=== PATIENT | female | born 1995 ===

== ENCOUNTER 2017-02-25 16:21 | Emergency (ER) | payer SELFPAY ==
[2017-02-25 16:56] LABS: URINE BACTERIA OCC (<OCC); WBC URINE 56 /hpf (0-5)
[2017-02-25 16:57] LABS: PH,URINE 8.5 (5.0-8.0); URINE BILIRUBIN NEGATIVE (NEGATIVE); URINE BLOOD NEGATIVE (NEGATIVE); URINE COLOR YELLOW (YELLOW); URINE GLUCOSE (UA) NEGATIVE (Normal); URINE KETONE NEGATIVE (NEGATIVE)
[2017-02-25 16:58] LABS: URINE LEUKOCYTE ESTERASE MODERATE Leu/uL (Negative); URINE PROTEIN TRACE mg/dL (NEGATIVE); URINE UROBILINOGEN 0.2 mg/dL (0.2-1.0)
[2017-02-25] MEDS ORDERED: Lactated Ringer's 1,000 ML IV ONE (17:15)
--- NOTE | 2017-02-25 17:38 | OBHP ---
Datetime: 02/25/2017 17:33 IP Adm Impression: , intrauterine Admit Comment, IP Provider: 21 y/o @ 28.1 wks GA, no prental care x 1 month, reports recently c na from c/o right sided back pain on and off, non improved. pt denie any dysuira, urgency but re pors frequency. pt dnei esany blood in urine, vb, ctx, lof and reprots normal movmeents. pt den ies any fevers, chills, nasue, vomiting, CP, SOB, constipaton. 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 denies ever having a pap. LMP regular PMH: denies PSH: denies FH:X non contributory SHX: ngatei etho/tobacco/drugs MEDS :PNV Allergy: PCN rash A/P @ 28.1 wks GA with urinary frequency -UA/Urine Cx -IVH -Rx Keflex: adivsed of up to 30% cross reactivity of PNC allergy: precautiosn givne: if sob, cp, r corry, not feelign well to go nearset est -hydration encourage -tyenol prn pain -advsied can go to clinic to establity care, information provided - labor precatuiosn given Pelvic Type - PN: Adequate Extremities - PN: Normal Abdomen - PN: Normal Back - PN: Normal Breast - PN: Not Done Lungs - PN: Normal Heart - PN: Normal Thyroid - PN: Normal Neurologic - PN: Normal HEENT - PN: Normal General - PN: Normal FHR - Baseline A Provider: 135 Membranes, Provider: Intact Contraction Comments Provider: irritalibty Gestation - Est Wks by US: 28.1 EGA AdmitDate IP: 28.1 Vital Signs Provider: Reviewed; Within Normal Limits IP Chief Complaint: Other NICHD Variability Prov Fetus A: Moderate 6-25bpm NICHD Accel Fetus A IP Provider: 15X15 FHR Category Provider Fetus A: Category I NICHD Decel Fetus A IP Provider: None Dilatation, Provider: 0 Effacement, Provider: 0 Station, Provider: -3 Genitourinary Exam: Normal DTRs - PN: Normal
[2017-02-27 14:10] VITALS: BP 107/61; PULSE 109
== END 2017-02-25 17:34 | disposition home or self-care (01) ==
LOC: C.EROB 16:21
DX: O26.893 Other specified pregnancy related conditions, third trimester (principal); R35.0 Frequency of micturition; Z3A.28 28 weeks gestation of pregnancy
CPT/HCPCS: 81001; 99283; J7120

== ENCOUNTER 2017-05-24 20:12 | Inpatient (IN) | payer MEDICAID ==
[2017-05-24] MEDS: Lactated Ringer's 1,000 ML IV SCH (21:05)
--- NOTE | 2017-05-24 21:27 | OBADHP ---
Datetime: 05/24/2017 20:33 Admit Comment, IP Provider: Patient is a 21 year old at 40w4d KAREN 05/20/17 by LMP consistent wi th 29w6d US presents to L+D for scheduled induction of labor for postdates. Patient is doing well, of fers no complaints at this time. Endorses +FM, states feeling abdominal pressure intermittently, gaye es LOF or VB. Issues: Chlamydia positive - treated on 03/23/17, NIGHAT negative Abnormal 1 hr GCT, 3 hr GTT WNL Late to care OB Hx: 1. 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 Hx: LMP 08/13/16 [facility] - 11 x regular x 4 days Denies hx of ovarian cysts, fibroids Hx of Chlamydia with this - treated Denies hx of abnormal pap smears Allergies: PCN Medications: PNV Medical Hx: Denies Surgical Hx: Denies Social Hx: Denies alcohol, tobacco, drug use; lives with brother, is in [place] Family Hx: Father - HTN, DM ; Mother - healthy ; Grandmother - DM PE: See above A/P: 21 year old at 40w4d presents for IOL 2/2 postdates -Stable, afebrile -Admit to Unit -CEFM and TOCO -Admission labs - CBC, CMP, T+S, UA -LR @ 125 cc/hr -GBS negative - no antibiotics needed at this time -Anesthesia on consult -Cervidil for cervical rippening agent -Plan d/w attending Vicki Estrella DO PGY-1 OB attending patient at 40.4 wga with c/o abdominal pain patient examined.agree with resident exam, assessment and plan A/P Post dates; uterine contraction s plan-admit -se eorders Pelvic Type - PN: Adequate Extremities - PN: Normal Abdomen - PN: Normal Back - PN: Normal General - PN: Normal Weight - Estimated: 3200 Presentation-Admit: Vertex FHR - Baseline A Provider: 140 Contraction Comments Provider: q4-5 min Comments, ACOG Physical Exam: VSS Gen: AAOx3 CV: RRR Lungs: CTA B/L Abd: Soft, gravid Ext: No clubbing, cyanosis, edema SVE: closed/thick/high Gestation - Est Wks by US: 40.4 IP Hx Assessment: The History has been Reviewed and is Current Vital Signs Provider: Reviewed IP Chief Complaint: Uterine contractions NICHD Variability Prov Fetus A: Moderate 6-25bpm NICHD Accel Fetus A IP Provider: 15X15 FHR Category Provider Fetus A: Category I NICHD Decel Fetus A IP Provider: None Dilatation, Provider: closed Effacement, Provider: thick Station, Provider: high Genitourinary Exam: Normal DTRs - PN: Normal EGA AdmitDate IP: 40.4 IP Adm Impression: Term, intrauterine IP Admit Plan: Admit to unit; Initiate labor induction protocol Datetime: 02/25/2017 17:33 Breast - PN: Not Done Lungs - PN: Normal Heart - PN: Normal Thyroid - PN: Normal Neurologic - PN: Normal HEENT - PN: Normal Membranes, Provider: Intact
[2017-05-24 21:39] LABS: BASO % 0.2 % (0.0-2.0); EOS % 0.3 % (0.0-4.0); HEMATOCRIT 41.7 % (34.0-47.0); LYMPH # 2.2 K/uL (1.0-4.3); LYMPH % 21.6 % (20.0-40.0); MEAN CELL VOLUME 88.9 fL (81.0-99.0); MEAN CORPUSCULAR HEMOGLOBIN 29.5 pg (27.0-31.0); MEAN CORPUSCULAR HGB CONC 33.2 g/dL (33.0-37.0); MEAN PLATELET VOLUME 7.2 fL (7.2-11.7); MONO # 0.7 K/uL (0.0-0.8); MONO % 7.2 % (0.0-10.0); RED CELL DISTRIBUTION WIDTH 14.5 % (11.5-14.5); WHITE BLOOD COUNT 10.1 K/uL (4.8-10.8)
[2017-05-24 21:58] LABS: ALB/GLOB RATIO 0.9 (1.0-2.1); ALKALINE PHOSPHATASE 269 U/L (38-126); ALT/SGPT 33 U/L (9-52); AST/SGOT 26 U/L (14-36); BILIRUBIN,TOTAL 0.4 mg/dL (0.2-1.3); BLOOD UREA NITROGEN 10 mg/dL (7-17); CALCIUM 8.5 mg/dl (8.6-10.4); CARBON DIOXIDE 20 mmol/L (22-30); CHLORIDE 104 mmol/L (98-107); GFR AFRICAN-AMERICAN > 60; GLUCOSE,RANDOM 81 mg/dL (65-105); POTASSIUM 3.7 mmol/L (3.6-5.2); SODIUM 132 mmol/L (132-148); TOTAL PROTEIN 7.2 g/dL (6.3-8.3)
--- NOTE | 2017-05-24 22:02 | OBPN ---
Datetime: 05/24/2017 21:53 IP Progress Impression: Reassuring heart rate IP Procedures: Sterile Vag Exam IP Progress Plan: Continue present management Contraction Comments Provider: occ IP Progress Note Comment: S-patient denies any complaints. FHT cat1 [place] occ ctx sve closed/thick and high A/P Patient at 40.4 wga here for idnuction for postdates -cervidil placed -continue to monitor closely Vital Signs Provider: Reviewed FHR Category Provider Fetus A: Category I Dilatation, Provider: 0 Effacement, Provider: 50 Station, Provider: -3 Datetime: 05/24/2017 20:33 FHR - Baseline A Provider: 140 Gestation - Est Wks by US: 40.4 Weight - Estimated: 3200 Presentation-Admit: Vertex NICHD Accel Fetus A IP Provider: 15X15 NICHD Variability Prov Fetus A: Moderate 6-25bpm NICHD Decel Fetus A IP Provider: None Datetime: 02/25/2017 17:33 Membranes, Provider: Intact
[2017-05-24 22:10] LABS: RBC URINE 12 /hpf (0-3); URINE BACTERIA FEW (<OCC); URINE BILIRUBIN NEGATIVE (NEGATIVE); URINE BLOOD 1+ (NEGATIVE); URINE COLOR Yellow (YELLOW); URINE GLUCOSE (UA) NORMAL (Normal); URINE KETONE NEGATIVE (NEGATIVE); URINE LEUKOCYTE ESTERASE 3+ Leu/uL (Negative); URINE PROTEIN 1+ mg/dL (NEGATIVE); URINE UROBILINOGEN NORMAL mg/dL (0.2-1.0); WBC URINE 86 /hpf (0-5)
[2017-05-24] MEDS ORDERED: Nalbuphine 20 mg/ml Inj (1 ml) IVP PRN (23:45)
[2017-05-25] MEDS ORDERED: Nalbuphine 20 mg/ml Inj (1 ml) ONE ×2 (07:52→20:00)
--- NOTE | 2017-05-25 10:08 | OBPN ---
Datetime: 05/25/2017 10:04 IP Procedures: Sterile Vag Exam Contraction Comments Provider: q1-5 FHR - Baseline A Provider: 130 IP Progress Note Comment: pt was seen at bed side ve /-3 cervidil removed. plan give a break reg deit walking will put a cervidil plan was idscussed with pateimnt and afrees Vital Signs Provider: Reviewed; Within Normal Limits NICHD Accel Fetus A IP Provider: 15X15 FHR Category Provider Fetus A: Category I NICHD Variability Prov Fetus A: Moderate 6-25bpm Dilatation, Provider: 1 Effacement, Provider: 50 Station, Provider: -3
[2017-05-25] MEDS: Lactated Ringer's 1,000 ML IV SCH (15:00)
--- NOTE | 2017-05-25 19:09 | OBPN ---
Datetime: 05/25/2017 16:05 IP Progress Impression: Normal progression of labor IP Procedures: Sterile Vag Exam IP Progress Plan: Cervical Ripening FHR - Baseline A Provider: 130 IP Progress Note Comment: pt was examined at bed side ve /-3 cervidil placed. pain meds anticipate Vital Signs Provider: Reviewed; Within Normal Limits NICHD Accel Fetus A IP Provider: 15X15 FHR Category Provider Fetus A: Category I NICHD Variability Prov Fetus A: Moderate 6-25bpm Dilatation, Provider: 1 Effacement, Provider: 50 Station, Provider: -3
[2017-05-25] MEDS: Nalbuphine 20 mg/ml Inj (1 ml) IVP PRN (20:06)
[2017-05-26] MEDS ORDERED: Nalbuphine 20 mg/ml Inj (1 ml) ONE (02:13)
[2017-05-26] MEDS: Nalbuphine 20 mg/ml Inj (1 ml) IVP PRN (02:16)
[2017-05-26] MEDS ORDERED: Oxytocin 30 UNIT 30 UNITS/500 ML BAG IV PRN (04:30)
[2017-05-26] MEDS ORDERED: Oxytocin 30 UNIT 30 UNITS/500 ML BAG IV ONE (05:04)
[2017-05-26] MEDS: Lactated Ringer's 1,000 ML IV SCH (05:05)
--- NOTE | 2017-05-26 08:10 | OBPN ---
Datetime: 05/26/2017 08:01 IP Progress Impression: Normal progression of labor IP Procedures: Sterile Vag Exam IP Progress Plan: Continue present management Membranes, Provider: Ruptured Contraction Comments Provider: 2-3 minutes FHR - Baseline A Provider: 150 Gestation - Est Wks by US: 40w 6d Presentation-Admit: Vertex IP Progress Note Comment: Patient received in LDR#4, c/o pain of contractions - desires epidural Turkish-speaking predominantly; Clover Tidwell serves as finance business partner Cervical exam- as above. Assessment: 21 y.o. P0, 40w 6d, IOL with appropriate response S/P cervidil x 2. Entering acive pha se of labor. GBS(-). Category 1. Clinically stable. Plan: 1) Epidural 2) continue pitocin 3) Anticipate vaginal delivery NICHD Accel Fetus A IP Provider: 15X15 FHR Category Provider Fetus A: Category I NICHD Variability Prov Fetus A: Moderate 6-25bpm Dilatation, Provider: 4 Effacement, Provider: 70 Station, Provider: -3 NICHD Decel Fetus A IP Provider: None
[2017-05-26] MEDS ORDERED: Bupivacaine 0.125%/FentaNYL 200 ML EPI ONE (08:41)
[2017-05-26] MEDS ORDERED: Lidocaine 2% MPF (5 ml) Inj ONE (13:10)
[2017-05-26] MEDS ORDERED: Bupivacaine HCl 0.25% PF (10 ml) Inj ONE ×2 (13:10→16:27)
--- NOTE | 2017-05-26 15:52 | OBPN ---
Datetime: 05/26/2017 15:46 IP Progress Impression: Normal progression of labor IP Procedures: Intrauterine Pressure Catheter IP Progress Plan: Continue present management; Augmentation; Anticipate Vaginal Delivery Membranes, Provider: Ruptured Contraction Comments Provider: 2-3 FHR - Baseline A Provider: 150 Gestation - Est Wks by US: 40w 6d Presentation-Admit: Vertex IP Progress Note Comment: Patient received in LDR#4: S/P AROM ar 1220 hours. S/P epidrual - feels no pain; (+) right groin pressure Cervical exam - as above. IUPC inserted without difficulty. Pitocin at 12 mUnits/min Assessment: 21 y.o. P0, 40w 6d, IOL, in active labor. Category 1 tracing. Clinically stable. Plan: 1) Continue present management 2) Anticipate vaginal delivery Vital Signs Provider: Reviewed; Within Normal Limits NICHD Accel Fetus A IP Provider: 15X15 FHR Category Provider Fetus A: Category I NICHD Variability Prov Fetus A: Moderate 6-25bpm Dilatation, Provider: 6 Effacement, Provider: 90 Station, Provider: -1 NICHD Decel Fetus A IP Provider: None
--- NOTE | 2017-05-26 19:00 | OBPN ---
Datetime: 05/26/2017 18:50 IP Progress Impression Other: Protracted active phase of labor IP Procedures: Sterile Vag Exam IP Progress Plan: Continue present management Membranes, Provider: Ruptured Contraction Comments Provider: every 1 minute FHR - Baseline A Provider: 155 Gestation - Est Wks by US: 40w 6d Presentation-Admit: Vertex IP Progress Note Comment: Patient reports right leg pressure Cervical exam: as above Assessment: 21 y.o. P0, 40w 6d, protracted active phase of labor, on pitocin. D/W possibile Felix martha delivery. Patient wants to thtink about it. Category 1 tracing. Clinically stable. Plan: 1) Re-examine in 1 hour Vital Signs Provider: Reviewed; Within Normal Limits NICHD Accel Fetus A IP Provider: 15X15 FHR Category Provider Fetus A: Category I NICHD Variability Prov Fetus A: Moderate 6-25bpm Dilatation, Provider: 6-7 Effacement, Provider: 90 Station, Provider: 1 NICHD Decel Fetus A IP Provider: None
[2017-05-26] MEDS ORDERED: Sodium Citrate/Citric Acid 15 ml Sol PO ONE (20:07)
[2017-05-26] MEDS ORDERED: Clindamycin 600mg/50ml D5W 600 MG/50 ML VIAL IVPB ONE (20:07)
[2017-05-26] MEDS ORDERED: Clindamycin 600mg/50ml NS 600 MG/50 ML BAG IVPB ONE ×2 (20:15→20:30)
[2017-05-26] MEDS ORDERED: Sodium Citrate/Citric Acid 15 ml Sol ONE (20:16)
[2017-05-26] MEDS ORDERED: Oxytocin 20 units in LR 2,000 ML IV ONE (20:16)
[2017-05-26] MEDS ORDERED: Morphine 1 mg/ml preservative-free Inj(Duramorph) ONE (20:38)
--- NOTE | 2017-05-26 20:39 | OBPN ---
Datetime: 05/26/2017 20:32 IP Progress Impression: Arrest of dilatation/descent IP Procedures: Sterile Vag Exam IP Progress Plan: Deliver- Section Contraction Comments Provider: 2-3 FHR - Baseline A Provider: 150 IP Progress Note Comment: Cevical exam as above. Assessment: 21 y.o. P0, 40w 6d, arrest of cervical dialtaiton at 6 cm. Category 1 tracing. Patien t ccounseled for primary C/S: [employer] [facility] [facility] [place] ID# [id number] used to discuss possible risks, comp lications. Patient expresed an understanding and agrees; no quesitons offered. Consents signed, dated , witnessed and placed in chart. Plan: 1) Notify anesthesia 2) Notify peds 3) Pre-op meds 4) Abdominal prep and shave 5) data integrity analyst to O.R. Vital Signs Provider: Reviewed; Within Normal Limits NICHD Accel Fetus A IP Provider: 10X10 FHR Category Provider Fetus A: Category I NICHD Variability Prov Fetus A: Moderate 6-25bpm Dilatation, Provider: 6-7 Effacement, Provider: 90 Station, Provider: 1 NICHD Decel Fetus A IP Provider: None
[2017-05-26] MEDS ORDERED: Oxytocin 10 Units/ml Inj ONE (21:41)
[2017-05-26] MEDS ORDERED: Midazolam 2 MG/2 ML VIAL ONE (21:42)
[2017-05-26] MEDS ORDERED: Oxycodone/Acetaminophen 5/325 mg Tab PO PRN (23:00)
[2017-05-26] MEDS ORDERED: Naloxone 0.4 mg/ml Inj (Adult) IVP PRN (23:05)
[2017-05-26] MEDS ORDERED: DiphenhydrAMINE 50 mg/ml Inj IVP PRN (23:05)
--- NOTE | 2017-05-26 23:09 | PCM.SURG1 ---
<Vicki Estrella - Last Filed: 05/26/17 23:10> Surgeon's Initial Post Op Note - Surgeon's Notes Surgeon: Dr Kuo Coffee Shop Attendant: Rubber Turner Dr Anmol Pascal, Second Assist Dr Vicki Estrella DO PGY-1 Type of Anesthesia: Spinal Pre-Operative Diagnosis: 40 weeks 6 days, arrest of cervical dilation at 6cm Operative Findings: Live female ANNABEL, thick meconium liquor, APGARS 9 and 9 weight 6lbs 15oz. Normal uterus, normal ovaries and fallopian tubes bilaterally, mild uterine atony. Post-Operative Diagnosis: Same Operation Performed: Primary Low Transverse Delivery Specimen/Specimens Removed: None Estimated Blood Loss: EBL {In ML}: 800 Post-Op Condition: Fair Date of Surgery/Procedure: 05/26/17 Time of Surgery/Procedure: 22:50 <Stephany Kuo - Last Filed: 05/26/17 23:30> Surgeon's Initial Post Op Note - Surgeon's Notes Surgeon: Stephany Kuo MD Coffee Shop Attendant: Anmol Pascal MD; 2nd Assist: Vicki Estrella DO, PGY-1 Anesthesia Administered By: Rashard Ni MD Blood Products Given: N/A (pitocin 40 units total) Drains Used: No Drains Post-Op Condition: Good
--- NOTE | 2017-05-26 23:27 | OBDS ---
DELIVERY PERSONNEL Delivery Doctor: Noman Kuo MD Rod Cup Filler: Arlen Flanagan RN Anesthesiologist: Noman Ni MD Resident: Vicki Estrella MATERNAL INFORMATION Delivery Anesthesia: Spinal Medications in Delivery: pitocin 40 units Estimated Blood Loss (ml): 800 Placenta Cultured: No Maternal Complications: None RN Comments: Primary CS to a live baby girl with of 9/9 Provider Comments: Uncomplicated primary LTCS with atraumatic delivery of live female , ANNABEL, t hick meconium liquor. Weight 6lb 15oz, 's 9/9. Grossly normal placenta; 3 vessel cord. Hemostasi a assured throughout procedure. Patient tolerated procedure well. LABOR SUMMARY EDC: 05/20/2017 00:00 No. Babies in Womb: 1 Attempted: No Labor Anesthesia: Epidural LABOR INFORMATION Reason for Induction: Postterm Cervical Ripening Agents: Cervidil (Annotations: cervidil removed) Other Ripening Agents: Cervidil 10mg intravaginally given by Oxytocin: Augmentation Group B Beta Strep: Negative Steroids Given: None Reason Steroids Not Administered: Not Applicable MEMBRANES Membranes Rupture Method: Artificial Rupture of Membranes: 05/26/2017 12:10 Length of Rupture (hrs): 9.42 Amniotic Fluid Color: Clear Amniotic Fluid Amount: Moderate Amniotic Fluid Odor: Normal STAGES OF LABOR Stage 3 hrs: 0 Stage 3 min: 1 CSECTION DELIVERY Primary Indication: Arrest of dilatation CSection Urgency: Non Elective CSection Incidence: Primary Labor: Labor Elective: Nonelective CSection Incision: Lower Uterine Transverse (Annotations: Data stored by N on behalf of user) Uterine Closure: Double-layer closure BABY A INFORMATION Delivery Date/Time: 05/26/2017 21:35 Method of Delivery: Born in Route : No : N/A Forceps: N/A Vacuum Extraction: N/A Shoulder Dystocia : Yes SHOULDER DYSTOCIA BABY A Infant Delivery Date/Time: 05/26/2017 21:35 PRESENTATION/POSITION BABY A Presentation: Cephalic Cephalic Presentation: Vertex Vertex Position: Left Occipital Anterior Breech Presentation: N/A PLACENTA INFORMATION BABY A Placenta Delivery Time : 05/26/2017 21:36 Placenta Method of Delivery: Manual Removal Placenta Status: Delivered SCORES BABY A Heart Rate 1 min: >100 bpm Resp Effort 1 min: Good Cry Reflex Irritability 1 min: Cough or Sneeze or Pulls Away Muscle Tone 1 min: Active Motion Color 1 min: Body [place], Extremities Blue SCORE 1 MIN: 9 Heart Rate 5 min: >100 bpm Resp Effort 5 min: Good Cry Reflex Irritability 5 min: Cough or Sneeze or Pulls Away Muscle Tone 5 min: Active Motion Color 5 min: Body [place], Extremities Blue SCORE 5 MIN: 9 INFORMATION BABY A Gestational Age at Delivery: 41.0 Gestational Status: Term Infant Outcome : Liveborn Infant Condition : Stable Sex: Female IDENTIFICATION/MEDS BABY A ID Band Number: [id number] ID Band Location: Left Leg; Left Arm Sensor Applied: Yes Sensor Number: [id number] Sensor Location : Cord Clamp WEIGHT/LENGTH BABY A Infant Birthweight (gms): 3150 Infant Weight (lb): 6 Weight (oz): 15 Length Inches: 18.50 Length cms: 47.0 CORD INFORMATION BABY A No. Cord Vessels: 3 Nuchal Cord : Around Neck x1, Loose Cord Blood Taken: Yes Infant Suction: None ASSESSMENT BABY A Infant Complications: None Physical Findings at Delivery: Within Normal Limits Infant Respirations: Appears Normal Tire Curer/ALS Called : No Care By: Dr. Chicas Transferred To: [facility]
--- NOTE | 2017-05-27 07:46 | OBPPN ---
Datetime: 05/27/2017 07:38 PP Pain Prov: Within normal limits PP Nausea Prov: Denies PP Flatus Prov: No PP Abdomen/Uterus Prov: Normal PP Lochia Prov: Normal PP Extremities Prov: Normal PP C/S Incision Prov: Normal PP Comments Phys Exam Prov: fudus below umblicus ext no edema,no cakf ten incision clean and dry PP Impression Prov: Normal progression PP Plan Prov: Continue present management PP Progress Note Prov: pt was seen at bed side, pain under control,no n/v,waiting to void,min lochi a, flatus _ pod#1 s/p c/s liquid deit dc jolly cont post op care cont pain managem encourage ambulation Vital Signs Provider PP: Reviewed; Within Normal Limits
[2017-05-27 08:27] LABS: BASO % 0.2 % (0.0-2.0); EOS % 0.1 % (0.0-4.0); HEMATOCRIT 35.1 % (34.0-47.0); LYMPH # 1.7 K/uL (1.0-4.3); MEAN CELL VOLUME 89.8 fL (81.0-99.0); MEAN CORPUSCULAR HEMOGLOBIN 29.7 pg (27.0-31.0); MEAN CORPUSCULAR HGB CONC 33.1 g/dL (33.0-37.0); MEAN PLATELET VOLUME 7.4 fL (7.2-11.7); MONO # 1.3 K/uL (0.0-0.8); MONO % 8.1 % (0.0-10.0); RED CELL DISTRIBUTION WIDTH 14.9 % (11.5-14.5); WHITE BLOOD COUNT 15.9 K/uL (4.8-10.8)
--- NOTE | 2017-05-27 09:24 | OP ---
PROCEDURE DATE: 05/26/2017 PREOPERATIVE DIAGNOSIS: 40-week and 6-day gestation, arrest of cervical dilatation at 6 cm. POSTOPERATIVE DIAGNOSIS: 40-week and 6-day gestation, arrest of cervical dilatation at 6 cm. OPERATION PERFORMED: Primary transverse lower uterine segment Caesarean section. SURGEON: Stephany Kuo MD MECHANISM ASSEMBLER: Anmol Pascal MD SECOND AGRICULTURAL TECHNICIAN: Vicki Estrella DO, PGY-1. THIRD AGRICULTURAL TECHNICIAN: Lexy Berger DO, PGY-1 ANESTHESIA TYPE: Spinal. ANESTHESIOLOGIST: Dr. Rashard Ni OPERATIVE FINDINGS A life female in the left occipitoanterior position, Apgars 9 and 9 at one and five minutes, respectively; weight 6 pounds 15 ounces. There was thick meconium liquor. Normal uterus; normal ovaries and fallopian tubes bilaterally. There was mild uterine atony. SPECIMENS: None. ESTIMATED BLOOD LOSS: 800 ml URINE OUTPUT: 500 mL, blood tinged urine. INTRAVENOUS FLUIDS: 2500 mL lactated Ringer's. OTHER: 40 units pitocin POSTOPERATIVE CONDITION: Good. COMPLICATIONS: None. DESCRIPTION OF PROCEDURE: The patient was taken to the operating room after having obtained informed consent for the anticipated procedure. This included a discussion of possible risks and complications including but not limited to infection requiring antibiotics, hemorrhage requiring blood transfusion, repair of any damage to internal organs, possible Caesarean hysterectomy. The patient offered no questions. Consents were dated, signed, witnessed and placed in the chart. The patient actually had received clindamycin 900 mg prior to being escorted to the operating room. In the operating room, she was placed on the operating room table in a sitting position and spinal anesthesia was administered without incident. She was immediately repositioned to a supine position; the abdomen was prepped and she was subsequently draped in usual sterile fashion. After assuring an adequate level of anesthesia using a scalpel, a Pfannenstiel incision was made on the skin. The incision was carried down through the subcutaneous tissue using the Bovie electrocautery. The fascia was identified. It was nicked in the midline and the incision was extended bilaterally also using the Bovie electrocautery. The rectus muscles were dissected off the overlying fascia. The rectus muscle was in the midline by sharp dissection and the peritoneum was entered using sharp dissection. The vesicouterine reflection was identified and the bladder flap was created. A transverse incision was then made on the uterus using the scalpel. At this time thick meconium liquor was noted. The incision was extended bilaterally using bandage scissors. Atraumatic delivery of the with findings as above ensued. Once on the operative field, the 's mouth and nose were bulb suctioned as the umbilical cord was doubly clamped and cut. A segment of the umbilical cord was resected for cord pH analysis; results are pending. The infant was handed off the operative field to the pediatricians in attendance. Manual extraction was performed to remove the placenta. It was grossly intact with three vessels present in the cord. The uterus was exteriorized for closure. This was done in two layers using 0 Vicryl. The first layer was a running interlocking fashion. The second layer was vertical imbricating fashion. Additional sutures were placed in a running interlocking fashion as a third layer using 2-0 Monocryl. Adequate hemostasis was then assured. Attention was directed posteriorly. Copious irrigation was performed. The pelvic viscera were noted as above. Attention was redirected to the uterine incision. After assuring hemostasis, Surgicel was placed along the incision. The bladder flap was reapproximated using 2-0 chromic in a running fashion. The uterus was then returned to the abdominal cavity. The paracolic gutters were cleared of all debris. Hemostasis was assured. The parietal peritoneum was reapproximated using 2-0 chromic in a running fashion and the muscle was reapproximated using 2-0 chromic in a running fashion. The fascia was reapproximated using 1-0 Vicryl in a running fashion, one suture. The subcutaneous tissue was reapproximated using plain catgut in a running fashion. The skin was reapproximated using 4-0 Monocryl in a subcuticular manner. Steri-Strips were applied. The patient was then repositioned in a frogleg manner and bimanual exploration was performed. The uterus was emptied of additional blood clots. It was firm and contracted. A pressure dressing was applied. The patient was transferred back to [facility] in stable condition. The had been transferred to the [facility], also a stable condition. Dr. Pascal was present throughout the entire procedure. His presence was necessary for the followin) assuring adequate visualization of the operative field at all times, 2) the safe and atraumatic delivery of the , and 3) assuring adequate hemostasis throughout. Stephany MD Ayaan MTDLuis
[2017-05-27] MEDS: Simethicone 80 mg Chewtab PO SCH ×4 (10:23→22:24)
[2017-05-27] MEDS: Oxycodone/Acetaminophen 5/325 mg Tab PO PRN (22:23)
[2017-05-27] MEDS ORDERED: Bisacodyl 5mg EC Tab PO ONE (23:01)
[2017-05-28] MEDS: Oxycodone/Acetaminophen 5/325 mg Tab PO PRN ×2 (06:12→21:48)
--- NOTE | 2017-05-28 08:23 | OBPPN ---
Datetime: 05/28/2017 08:20 PP Pain Prov: Within normal limits PP Nausea Prov: Denies PP Flatus Prov: Yes PP Abdomen/Uterus Prov: Normal PP Lochia Prov: Normal PP Extremities Prov: Normal PP Comments Phys Exam Prov: fudus below umb ext no edema,no caslf ten incision clean and dry PP Impression Prov: Normal progression PP Plan Prov: Continue present management PP Progress Note Prov: pt was seen at bed side pain under control,no n/v, tolerating ,min lochaia, f ;latus + pod#2 s/p c/s cont post op care cont pain nazanin encourage ambulation Vital Signs Provider PP: Reviewed; Within Normal Limits
[2017-05-28] MEDS: Simethicone 80 mg Chewtab PO SCH ×4 (09:54→21:49)
[2017-05-28] MEDS ORDERED: WATER IVPB SCH ×2 (16:30→18:30)
[2017-05-28] MEDS ORDERED: DEXTROSE 5% IVPB SCH ×2 (16:30→18:30)
[2017-05-28] MEDS ORDERED: TRIMETHOPRIM IVPB SCH ×2 (16:30→18:30)
[2017-05-28] MEDS ORDERED: SULFAMETHOXAZOLE IVPB SCH ×2 (16:30→18:30)
[2017-05-28 16:57] LABS: BASO % 0.1 % (0.0-2.0); EOS # 0.1 K/uL (0.0-0.7); EOS % 0.4 % (0.0-4.0); HEMATOCRIT 32.4 % (34.0-47.0); LYMPH # 1.3 K/uL (1.0-4.3); LYMPH % 9.3 % (20.0-40.0); MEAN CORPUSCULAR HEMOGLOBIN 29.4 pg (27.0-31.0); MEAN PLATELET VOLUME 7.1 fL (7.2-11.7); MONO # 0.9 K/uL (0.0-0.8); MONO % 6.1 % (0.0-10.0); PLATELET COUNT 182 K/uL (130-400); RED CELL DISTRIBUTION WIDTH 14.7 % (11.5-14.5); WHITE BLOOD COUNT 14.4 K/uL (4.8-10.8)
[2017-05-28 17:01] LABS: ALB/GLOB RATIO 1.2 (1.0-2.1); ALKALINE PHOSPHATASE 157 U/L (38-126); ALT/SGPT 32 U/L (9-52); AST/SGOT 21 U/L (14-36); BILIRUBIN,TOTAL 0.5 mg/dL (0.2-1.3); BLOOD UREA NITROGEN 6 mg/dL (7-17); CALCIUM 7.1 mg/dl (8.6-10.4); CARBON DIOXIDE 23 mmol/L (22-30); CHLORIDE 104 mmol/L (98-107); GFR AFRICAN-AMERICAN > 60; GLUCOSE,RANDOM 85 mg/dL (65-105); POTASSIUM 3.1 mmol/L (3.6-5.2); SODIUM 131 mmol/L (132-148); TOTAL PROTEIN 4.6 g/dL (6.3-8.3)
[2017-05-28] MEDS: DEXTROSE 5% IVPB SCH (17:38)
[2017-05-28] MEDS: TRIMETHOPRIM IVPB SCH (17:38)
[2017-05-28] MEDS: SULFAMETHOXAZOLE IVPB SCH (17:38)
[2017-05-28] MEDS: WATER IVPB SCH (17:38)
[2017-05-28 18:00] LABS: NEUTROPHIL 88 % (50-75); TOTAL CELLS COUNTED 100
[2017-05-28 18:01] LABS: GIANT PLATELETS PRESENT; LARGE PLATELETS PRESENT
[2017-05-29] MEDS: WATER IVPB SCH ×2 (05:54→18:26)
[2017-05-29] MEDS: SULFAMETHOXAZOLE IVPB SCH ×2 (05:54→18:26)
[2017-05-29] MEDS: DEXTROSE 5% IVPB SCH ×2 (05:54→18:26)
[2017-05-29] MEDS: TRIMETHOPRIM IVPB SCH ×2 (05:54→18:26)
[2017-05-29] MEDS ORDERED: Potassium Chloride 20 mEq ER Tab PO ONE ×2 (07:11→10:30)
[2017-05-29 07:26] LABS: BASO % 0.2 % (0.0-2.0); EOS # 0.1 K/uL (0.0-0.7); EOS % 0.8 % (0.0-4.0); HEMATOCRIT 30.5 % (34.0-47.0); LYMPH # 1.8 K/uL (1.0-4.3); LYMPH % 14.6 % (20.0-40.0); MEAN CELL VOLUME 88.8 fL (81.0-99.0); MEAN CORPUSCULAR HEMOGLOBIN 29.3 pg (27.0-31.0); MEAN PLATELET VOLUME 6.6 fL (7.2-11.7); MONO % 7.7 % (0.0-10.0); RED CELL DISTRIBUTION WIDTH 14.8 % (11.5-14.5); WHITE BLOOD COUNT 12.5 K/uL (4.8-10.8)
[2017-05-29 07:57] LABS: ALB/GLOB RATIO 1.2 (1.0-2.1); ALKALINE PHOSPHATASE 134 U/L (38-126); ALT/SGPT 36 U/L (9-52); AST/SGOT 18 U/L (14-36); BILIRUBIN,TOTAL 0.6 mg/dL (0.2-1.3); BLOOD UREA NITROGEN 5 mg/dL (7-17); CARBON DIOXIDE 24 mmol/L (22-30); CHLORIDE 102 mmol/L (98-107); GFR AFRICAN-AMERICAN > 60; GLUCOSE,RANDOM 75 mg/dL (65-105); POTASSIUM 3.1 mmol/L (3.6-5.2); SODIUM 132 mmol/L (132-148); TOTAL PROTEIN 4.5 g/dL (6.3-8.3)
[2017-05-29] MEDS: Simethicone 80 mg Chewtab PO SCH ×4 (10:07→21:42)
--- NOTE | 2017-05-29 20:23 | OBPPN ---
Datetime: 05/29/2017 20:18 PP Pain Prov: Within normal limits PP Nausea Prov: Denies PP Flatus Prov: Yes PP Heart Prov: Normal PP Lungs Prov: Normal PP Lochia Prov: Normal PP CVA Tenderness Prov: Normal PP Extremities Prov: Normal PP C/S Incision Prov: Normal PP Progress Prov: Normal PP Impression Prov: Normal progression PP Plan Prov: Continue present management PP Progress Note Prov: deneis nausea, vomiting, headache, chest pain, shortness of breath, numvbness or tingling in hands and feet O-VSAfebrile now; last temp at midnight of 100.[address] below umbilicus extremities no calf tenderness incision clean, dry and intact lungs ctab heart s1s2+ rrr A/P Patient at 38 wga s/p csection pod 3 with fever on iv bactrim.afebrilenow.urine and bld cx pending -repeat cbc and cmp in am -contiue bactrim -monitor closely Vital Signs Provider PP: Reviewed Vital Signs Provider Details PP: last temp 100.8 f 00.12 t 05/29/2017
[2017-05-30] MEDS: WATER IVPB SCH (04:22)
[2017-05-30] MEDS: SULFAMETHOXAZOLE IVPB SCH (04:22)
[2017-05-30] MEDS: DEXTROSE 5% IVPB SCH (04:22)
[2017-05-30] MEDS: TRIMETHOPRIM IVPB SCH (04:22)
--- NOTE | 2017-05-30 07:50 | CP.PCM.DIS ---
Provider - Provider Date of Admission: 05/24/17 20:29 Attending physician: Alexander Kunz MD Primary care physician: PMD: none Consults: Anesthesiology: Dr Bello Time Spent in preparation of Discharge (in minutes): 33 Diagnosis - Discharge Diagnosis (1) delivery delivered Status: Resolved Priority: Medium Hospital Course - Lab Results Lab Results: Micro Results 05/28/17 16:40 Blood Blood Culture - Preliminary NO GROWTH AFTER 24 HOURS 05/28/17 16:00 Blood Blood Culture - Preliminary NO GROWTH AFTER 24 HOURS Most Recent Lab Values WBC 12.5 K/uL (4.8-10.8) H 05/29/17 07:19 RBC 3.43 Mil/uL (3.80-5.20) L 05/29/17 07:19 Hgb 10.1 g/dL (11.0-16.0) L 05/29/17 07:19 Hct 30.5 % (34.0-47.0) L 05/29/17 07:19 MCV 88.8 fL (81.0-99.0) 05/29/17 07:19 MCH 29.3 pg (27.0-31.0) 05/29/17 07:19 MCHC 33.0 g/dL (33.0-37.0) 05/29/17 07:19 RDW 14.8 % (11.5-14.5) H 05/29/17 07:19 Plt Count 181 K/uL (130-400) 05/29/17 07:19 MPV 6.6 fL (7.2-11.7) L 05/29/17 07:19 Neut % (Auto) 76.7 % (50.0-75.0) H 05/29/17 07:19 Lymph % (Auto) 14.6 % (20.0-40.0) L 05/29/17 07:19 [place] % (Auto) 7.7 % (0.0-10.0) 05/29/17 07:19 Eos % (Auto) 0.8 % (0.0-4.0) 05/29/17 07:19 Baso % (Auto) 0.2 % (0.0-2.0) 05/29/17 07:19 Neut # 9.6 K/uL (1.8-7.0) H 05/29/17 07:19 Lymph # 1.8 K/uL (1.0-4.3) 05/29/17 07:19 [place] # 1.0 K/uL (0.0-0.8) H 05/29/17 07:19 Eos # 0.1 K/uL (0.0-0.7) 05/29/17 07:19 Baso # 0.0 K/uL (0.0-0.2) 05/29/17 07:19 Neutrophils % (Manual) 88 % (50-75) H 05/28/17 16:36 Band Neutrophils % 1 % (0-2) 05/28/17 16:36 Lymphocytes % (Manual) 5 % (20-40) L 05/28/17 16:36 Monocytes % (Manual) 6 % (0-10) 05/28/17 16:36 Platelet Estimate Normal (NORMAL) 05/28/17 16:36 Large Platelets Present 05/28/17 16:36 Giant Platelets Present 05/28/17 16:36 Microcytosis (manual) Moderate 05/28/17 16:36 Sodium 132 mmol/L (132-148) 05/29/17 07:19 Potassium 3.1 mmol/L (3.6-5.2) L 05/29/17 07:19 Chloride 102 mmol/L (98-107) 05/29/17 07:19 Carbon Dioxide 24 mmol/L (22-30) 05/29/17 07:19 Anion Gap 9 (10-20) L 05/29/17 07:19 BUN 5 mg/dL (7-17) L 05/29/17 07:19 Creatinine 0.6 mg/dL (0.7-1.2) L 05/29/17 07:19 Est GFR ( Amer) > 60 05/29/17 07:19 Est GFR (Non-Af Amer) > 60 05/29/17 07:19 Random Glucose 75 mg/dL (65-105) 05/29/17 07:19 Calcium 7.0 mg/dl (8.6-10.4) L 05/29/17 07:19 Total Bilirubin 0.6 mg/dL (0.2-1.3) 05/29/17 07:19 AST 18 U/L (14-36) 05/29/17 07:19 ALT 36 U/L (9-52) 05/29/17 07:19 Alkaline Phosphatase 134 U/L (38-126) H 05/29/17 07:19 Total Protein 4.5 g/dL (6.3-8.3) L 05/29/17 07:19 Albumin 2.5 g/dL (3.5-5.0) L 05/29/17 07:19 Globulin 2.0 gm/dL (2.2-3.9) L 05/29/17 07:19 Albumin/Globulin Ratio 1.2 (1.0-2.1) 05/29/17 07:19 Urine Color Yellow (YELLOW) 05/24/17 21:28 Urine Clarity Hazy (Clear) 05/24/17 21:28 Urine pH 5.0 (5.0-8.0) 05/24/17 21:28 Ur Specific [place] 1.019 (1.003-1.030) 05/24/17 21:28 Urine Protein 1+ mg/dL (NEGATIVE) H 05/24/17 21:28 Urine Glucose (UA) Normal mg/dL (Normal) 05/24/17 21:28 Urine Ketones Negative mg/dL (NEGATIVE) 05/24/17 21:28 Urine Blood 1+ (NEGATIVE) H 05/24/17 21:28 Urine Nitrate Negative (NEGATIVE) 05/24/17 21:28 Urine Bilirubin Negative (NEGATIVE) 05/24/17 21:28 Urine Urobilinogen Normal mg/dL (0.2-1.0) 05/24/17 21:28 Ur Leukocyte Esterase 3+ Brenda/uL (Negative) H 05/24/17 21:28 Urine WBC (Auto) 86 /hpf (0-5) H 05/24/17 21:28 Urine RBC (Auto) 12 /hpf (0-3) H 05/24/17 21:28 Ur Squamous Epith Cells 28 /hpf (0-5) H 05/24/17 21:28 Urine Bacteria Few (<OCC) H 05/24/17 21:28 RPR Nonreactive (NONREACTIVE) 05/24/17 21:28 Blood Type O POSITIVE 05/24/17 23:35 Antibody Screen Negative 05/24/17 23:35 - Hospital Course Hospital Course: HPI: Patient is a 21 year old G1PO at 40w4d KAREN 05/20/17 by LMP consistent with 29w6d U/S presents to L+D for scheduled induction of labor for postdates. Patient is doing well, offers no complaints at this time. Endorses +FM, states feeling abdominal pressure intermittently, denies LOF or VB. issues: Chlamydia positive - treated on 03/23/17, NIGHAT negative Abnormal 1 hr GCT, 3 hr GTT WNL Late to care OB Hx: 1. Current [employer] Hx: LMP 08/13/16 [facility] - 11 x regular x 4 days Denies hx of ovarian cysts, fibroids Hx of Chlamydia with this - treated Denies hx of abnormal pap smears Allergies: PCN Medications: PNV Medical Hx: Denies Surgical Hx: Denies Social Hx: Denies alcohol, tobacco, drug use; lives with brother, is in [place] Family Hx: Father - HTN, DM; Mother - healthy; Grandmother - DM Hospital Course: On admission, patient was admitted to L+D. CEFM and TOCO started, labs were ordered (CBC, CMP, T+S, UA), lactated ringers were started at 125 cc/hr and cervidil was placed and patient was monitored closely. Cervidil was removed the next day, the patient was given a break and cervidil was re-inserted. The following day patient entered active phase of labor. An epidural was placed by the anesthesiologist and pitocin was administered. Patient was deemed to be in protracted active phase of labor, there was an arrest of cervical dilation at 6cm. A section was discused with the patient, the patient expressed understanding and agreed, a consent was signed. A primary low transverse was performed on the night of 17 with operative findings as follows: live female ANNABEL, thick meconium liquor, APGARS 9 and 9 weight 6lbs 15oz, normal uterus, normal ovaries, normal fallopian tubes b/l, mild uterine atony. Patient was placed in and was recovering well POD#1. However, on POD#2 patient became febrile at 101.9F and tachycardic. Repeat labs were ordered and she was started on bactrim BID. A Urine and Blood culture were also ordered. The blood culture showed no growth after 24 hours. By POD#4 the patient was afebrile with her HR improved to 101 and her WBC was downtrending. Her pain was controlled with motrin and percocet. She was medically stable for discharge and will be discharged with pain medications as well as a 7 day course of augmentin BID. - Date & Time of H&P Date of H&P: 05/24/17 Time of H&P: 21:27 Discharge Exam - Head Exam Head Exam: ATRAUMATIC, NORMAL INSPECTION - Eye Exam Eye Exam: EOMI Pupil Exam: PERRL - ENT Exam ENT Exam: Mucous Membranes Moist - Neck Exam Neck exam: Normal Inspection - Respiratory Exam Respiratory Exam: Clear to PA & Lateral, NORMAL BREATHING PATTERN, UNREMARKABLE. absent: Rales, Rhonchi, Wheezes - Cardiovascular Exam Cardiovascular Exam: Tachycardia, REGULAR RHYTHM, RRR, +S1, +S2. absent: JVD, Systolic Murmur - GI/Abdominal Exam GI & Abdominal Exam: Normal Bowel Sounds, Soft. absent: Tenderness - Exam Additional comments: Fundus 2-3 cm below the umbilicus - Extremities Exam Extremities exam: joint swelling - Neurological Exam Neurological exam: Alert, Normal Gait, Oriented x3 - Psychiatric Exam Psychiatric exam: Normal Affect, Normal Mood - Skin Skin Exam: Dry, Normal Color, Warm Discharge Plan - Discharge Medications Prescriptions: Amoxicillin/Clavulanate [Augmentin 875 MG-125 MG] 1 tab PO BID 7 Days tab Ibuprofen [Motrin] 600 mg PO Q6H PRN #30 tab PRN Reason: Pain, Mild (1-3) oxyCODONE/Acetaminophen [Percocet 5/325 mg Tab] 1 ea PO Q6H PRN #20 tab PRN Reason: Pain, Moderate (4-7) - Follow Up Plan Condition: GOOD Disposition: HOME/ ROUTINE Additional Instructions: Patient is medically stable for discharge. The patient is to have pelvic rest for 6 weeks. This includes NO sex, NO douching, NO heavy lifting for the next 6 weeks. The patient will be given scripts for the following medications which she should take as prescribed: 1. Motrin 600mg 1 tab every 6 hours as needed for mild pain 2. Percocet 1 tab every 6 hours as needed for moderate pain 3. Augmentin 1 tab every 12 hours for 7 days (14 tablets total) The patient is to follow-up in the clinic with an POWER DIGGER OPERATOR doctor in 1 week for incision check. If abnormal symptoms arise such as high fever or profuse vaginal bleeding or severe pelvic pain, patient is to promptly return to the ER.
[2017-05-30 07:57] LABS: ALB/GLOB RATIO 1.1 (1.0-2.1); ALKALINE PHOSPHATASE 121 U/L (38-126); ALT/SGPT 33 U/L (9-52); AST/SGOT 15 U/L (14-36); BILIRUBIN,TOTAL 0.4 mg/dL (0.2-1.3); BLOOD UREA NITROGEN 5 mg/dL (7-17); CALCIUM 7.5 mg/dl (8.6-10.4); CARBON DIOXIDE 27 mmol/L (22-30); CHLORIDE 106 mmol/L (98-107); GFR AFRICAN-AMERICAN > 60; GLUCOSE,RANDOM 74 mg/dL (65-105); SODIUM 137 mmol/L (132-148); TOTAL PROTEIN 4.6 g/dL (6.3-8.3)
[2017-05-30 08:04] LABS: BASO % 0.2 % (0.0-2.0); EOS # 0.1 K/uL (0.0-0.7); EOS % 1.3 % (0.0-4.0); HEMATOCRIT 30.4 % (34.0-47.0); LYMPH # 1.1 K/uL (1.0-4.3); MEAN CELL VOLUME 89.7 fL (81.0-99.0); MEAN CORPUSCULAR HEMOGLOBIN 30.2 pg (27.0-31.0); MEAN CORPUSCULAR HGB CONC 33.7 g/dL (33.0-37.0); MEAN PLATELET VOLUME 6.8 fL (7.2-11.7); MONO # 0.6 K/uL (0.0-0.8); MONO % 5.8 % (0.0-10.0); NRBC % 0.3 % (0.0-2.0); WHITE BLOOD COUNT 10.3 K/uL (4.8-10.8)
[2017-05-30 08:33] VITALS: BP 129/77; PULSE 100; TEMP 100.4; O2SAT 98
--- NOTE | 2017-05-30 09:06 | OBDCSUM ---
Datetime: 05/30/2017 08:04 Discharged to, Provider: Home Follow up at, Provider: Clinic Disch Instr Activity: Normal activity Disch Instr Diet: Regular Discharge Instructions, Provider: Routine instructions given Discharge Diagnosis, Provider: Term Delivered Discharge Time: 05/30/2017 10:00 Follow up in weeks, Provider: 1 week Disch Referrals: None Disch Activity Restrictions: No exercising; No lifting; No driving; Minimize walking; Minimize stair -climbing; No sexual activity; Nothing in vagina - [place], tampons, douche Discharge Comment, Provider: Pelvic rest x 6 weeks Take antibiotics as prescribed F/U with clinic in 1 week for incision check Discharge Diagnosis Prov Other: post op fever 41 week s/p c/s
--- NOTE | 2017-05-30 09:06 | OBPPN ---
Datetime: 05/30/2017 08:06 PP Pain Prov: Within normal limits PP Nausea Prov: Denies PP Flatus Prov: Yes PP BM Prov: Yes PP Heart Prov: Normal PP Lungs Prov: Normal PP Abdomen/Uterus Prov: Normal PP Lochia Prov: Normal PP Extremities Prov: Normal PP C/S Incision Prov: Normal PP Progress Prov: Normal PP Comments Phys Exam Prov: Fundus firm below umbilicus Ext: No clubbing, cyanosis, edema PP Impression Prov: Normal progression PP Plan Prov: Continue present management; Antibiotic therapy; Discharge PP Progress Note Prov: Patient seen and examined at bedside. Per nursing no acute events overnight. Patient is doing well, pain is controlled. Lochia is mild. Ambulating and tolerating diet. Urinating without difficulty. Passing flatus and BM. Breast feeding. Denies headaches, dizziness, cp, palpitati ons, sob, urinary symptoms. VSS Gen: AAOx3 CV: RRR Lungs: CTA B/L Abd: Soft, appropriately tender, fundus firm below umbilicus, incision c/d/i with steristrips Ext: No clubbing, cyanosis, edema; no calf tenderness Labs: 10.1>13.8/41.7<187 10.3>10.2/30.4<214 O positive Rubella immune A/P: 21 year old at 40w6d s/p PLTCD 2/2 failure to dilate PPD#4 -Stable, afebrile (last temp > 24 hours) -Pain control prn -Blood cx showing no growth -Encourage ambulation and hydration -Encourage breast feeding -Continue routine care -Will D/C home today - pelvic rest x 6 weeks, augmentin BID x 7 days, f/u with clinic in 1 week fo r incision check -Plan d/w attending Vicki Estrella DO PGY-1 Vital Signs Provider PP: Reviewed
[2017-05-30] MEDS: Simethicone 80 mg Chewtab PO SCH (11:08)
[2017-05-30 18:46] VITALS: RESP 19
== END 2017-05-30 14:15 | disposition home or self-care (01) | DRG 765 ==
LOC: C.EROB 20:12 → C.4D 20:29 → C.4M 05-27 01:01
PROVIDERS: ADMIT Student in an Organized Health Care Education/Training Program; ATTEND Student in an Organized Health Care Education/Training Program
PROC: 10D00Z1 Extraction of Products of Conception, Low, Open Approach (ICD-10-PCS; principal; 2017-05-24)
DX: O62.1 Secondary uterine inertia (principal); O86.4 Pyrexia of unknown origin following delivery; O48.0 Post-term pregnancy; Z3A.40 40 weeks gestation of pregnancy; O66.0 Obstructed labor due to shoulder dystocia; O69.81X0 Labor and delivery complicated by cord around neck, without compression, not applicable or unspecified; Z37.0 Single live birth